=== PATIENT | male | born 1955 | race Two or more races ===

== ENCOUNTER 2019-05-06 20:50 | Emergency (ER) | payer SELFPAY ==
[~2019-05-06] VITALS: Ht 165.1 cm; Wt 72.6 kg
[2019-05-07 00:56] VITALS: BP 135/93
[2019-05-07] MEDS ORDERED: METHOCARBAMOL 500 MG TAB PO ONE (02:30)
[2019-05-07] MEDS ORDERED: IBUPROFEN 800 MG TAB PO ONE (02:30)
== END 2019-05-07 02:50 | disposition home or self-care (01) ==
LOC: ER 20:55
DX: R51 Headache (principal); M62.838 Other muscle spasm; F17.210 Nicotine dependence, cigarettes, uncomplicated; V49.59XA Passenger injured in collision with other motor vehicles in traffic accident, initial encounter; Y93.89 Activity, other specified; Y99.8 Other external cause status; Y92.410 Unspecified street and highway as the place of occurrence of the external cause
CPT/HCPCS: 70450; 72125